=== PATIENT | female | born 1935 | race American Indian/Alaskan Native ===

== ENCOUNTER → 2017-08-02 | Outpatient (CLI) | payer OTHER ==
--- NOTE | 2017-08-02 15:37 | MAMMOGRAPHY REPORT ---
BILATERAL DIGITAL SCREENING MAMMOGRAM WITH CAD: 08/02/2017 CLINICAL HISTORY: Routine screening. The patient reported to the technologist that she has intermitt ent pain in her right lateral breast. TECHNIQUE: Current study was also evaluated with a Computer Aided Detection (CAD) system. Bilateral CC and MLO views were obtained. COMPARISON: Comparison is made to exams dated: 08/01/2016 mammogram, 07/29/2015 mammogram, [facility] [place], 04/22/2014 mammogram, 04/15/2013 mammogram, and 04/14/2012 mamm ogram - [facility]. BREAST COMPOSITION: There are scattered areas of fibroglandular density in both breasts. FINDINGS: No suspicious masses, calcifications, or areas of architectural distortion are noted in ei ther breast. There has been no significant interval change compared to prior exams. Benign oil cysts in the left breast are stable. A square marker was placed on the skin at the site of intermittent p ain described by the patient in the right superior breast seen on the MLO view only; no suspicious ma mmographic abnormality is seen in this region. IMPRESSION: ACR BI-RADS CATEGORY 2: BENIGN There is no mammographic evidence of malignancy. A 1 year screening mammogram is recommended. Also r ecommend clinical follow-up for intermittent right breast pain reported by the patient. The patient will receive written notification of the results. Approximately 10% of breast cancers are not detected with mammography. A negative mammographic report should not delay biopsy if a clinically suggestive mass is present. Elise Thao M.D. ah/:08/02/2017 10:45:47 Band Saw Operator: Jemima TORRE([place])(M), [facility] letter sent: Normal 1/2 BI-RADS Code: ACR BI-RADS Category 2: Benign
== END | disposition home or self-care (01) ==
LOC: C.MAMM 09:25
PROVIDERS: ATTEND Obstetrics & Gynecology
DX: Z12.31 Encounter for screening mammogram for malignant neoplasm of breast (principal)

== ENCOUNTER 2022-05-29 21:11 | Observation (INO) ==
--- NOTE | 2022-05-29 21:27 | Emergency Department Note ---
Impression & Plan Stroke-like symptom ADMIT ED Provider Note HPI: The patient is an 86-year-old female who presents the emergency department with an episode of transient altered speech and right-sided facial droop. This reportedly happened 3 hours prior to arrival. Patient symptoms are completely resolved on arrival here to the ED. patient is otherwise in no acute distress on arrival, she does have a history of some mild cognitive disorder and she is a limited historian on arrival but she is able to follow my commands appropriately and tells me that she does feel well. Patient is alert and oriented on arrival x3. ROS: -Neuro: Transient alteration in speech, right-sided facial droop *10 point review systems was conducted and is otherwise negative unless stated above *Outpatient medications and allergy history reviewed PE: General: Alert, NAD HEENT: Normocephalic, atraumatic Eyes: Extraocular eye movement is intact, no scleral erythema Pulmonary: Clear to auscultation bilaterally, no wheezing Cardio: Regular rate and rhythm GI: Abdomen is soft, nontender : No suprapubic tenderness MSK: No evidence of trauma or malformation of the extremities, no edema Skin: No evidence of rash Neuro: Alert, no focal deficits, symmetrical facial movements are appreciated, no ataxia on [id number] testing bilaterally, patient does not have any drift of the upper extremities or lower extremities with testing against gravity Psychiatric: Cooperative media monitor: - An order was placed for continuous cardiac monitoring - Patient was noted to be in sinus rhythm with a rate of 85 EKG: Rate: 76 Rhythm: Normal sinus rhythm Intervals: Within normal limits ST changes: No ST elevation Time: 2228 CTA NECK: Mild atherosclerosis of the aortic arch. Moderate atherosclerosis of the right carotid bulb with short segment 50% narrowing. The post stenotic segment is well opacified. Mild atherosclerosis of the left carotids. The vertebral arteries are intact. Emphysematous changes of the upper lung escobedo. Soft tissue structures are intact. DJD. Impression: No acute findings. Radiologist: Lew Coronel M.D. CTA HEAD: Mild atherosclerosis of the cavernous carotids. MCAs and ACAs are intact. Vertebrals, basilar and the hand drawer in helper are intact. 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 Impression: No acute findings. Radiologist: Lew Coronel M.D. CT HEAD: Moderate brain volume loss. Mild chronic ischemic change. Sinuses clear. Postsurgical changes of the left mastoid. Cochlear implant creates streak artifact limiting evaluation. Impression: No acute findings. Limited by artifact. Radiologist: Lew Coronel M.D. NIH STROKE SCALE: 1A: Level of consciousness Alert; keenly responsive 0 1B: Ask month and age Both questions right 0 1C: 'Blink eyes' & 'squeeze hands' Performs both tasks 0 2: Horizontal extraocular movements Normal 0 3: Visual escobedo No visual loss 0 4: Facial palsy Normal symmetry 0 5A: Left arm motor drift No drift for 10 seconds 0 5B: Right arm motor drift No drift for 10 seconds 0 6A: Left leg motor drift No drift for 5 seconds 0 6B: Right leg motor drift No drift for 5 seconds 0 7: Limb Ataxia No ataxia 0 8: Sensation Normal; no sensory loss 0 9: Language/aphasia Normal; no aphasia 0 10: Dysarthria Normal 0 11: Extinction/inattention No abnormality 0 TOTAL NIH SCORE = 0 Medical Decision Making: The patient is a 86-year-old female who presents the emergency department after a transient episode of strokelike symptoms. Patient's later arrived at the bedside to provide further history, he states that the patient did have an acute episode at the dinner table shortly prior to arrival here to the ED where she had an episode of word finding difficulty, this lasted approximately 10 to 15 minutes, per EMS report patient was also noted to have some right-sided facial droop on their arrival. By the time the patient arrived here to the ED her symptoms had seemed to resolve therefore stroke alert was not activated. She is not considered a candidate for any acute aggressive therapy such as tPA or thrombectomy given lack of any symptoms. CT and CT angiography of the head and neck were obtained and did not show any evidence of acute stroke. Patient's lab work otherwise shows evidence of hyponatremia 128 that does appear to be new, in addition troponin is elevated at 26, I discussed the above findings with the patient and her at the bedside, patient does remain well-appearing on my reassessment, discussed that given her troponin elevation with history of CAD and this acute episode this evening we should obtain delta troponin as the patient did initially expressed interest in discharge as did her . Delta troponin was obtained and is elevated at 31.7. Discussed all the above with the patient and her , at this time given hyponatremia in addition to change in delta troponin I do feel that admission is the best course of action for the patient for close observation and reevaluation in the morning by the hospitalist service. Patient and her expressed an agreement understanding, patient will be admitted for secondary stroke work-up in addition to elevated troponin hyponatremia, she may not be able to obtain MRI imaging of the brain secondary to cochlear implant. Patient was given aspirin in the ED, will hold on IV fluids given hyponatremia. Case was discussed with the on-call hospitalist, Dr. Juares, and the patient was admitted in stable condition for further care. Diagnosis: 1. TIA symptoms/expressive aphasia 2. Elevated high-sensitivity troponin level 3. Hyponatremia, acute Disposition: ADMIT David Ferrell DO Emergency Medicine Past Med/Surg History Medical History Bilateral sensorineural hearing loss CAD (coronary artery disease) Encounter for pessary maintenance GERD (gastroesophageal reflux disease) Hip bursitis, left History of basal cell carcinoma History of migraine headaches Hyperlipidemia Hypertension Mild cognitive disorder Sensorineural hearing loss (SNHL) of left ear with restricted hearing of right ear Surgical History History of appendectomy History of colonoscopy History of ear surgery History of hand surgery History of left hip replacement History of right cataract surgery History of surgery History of tubal ligation S/P hip replacement Family History Father Coronary heart disease Sister Breast cancer Grandmother (Maternal) Breast cancer Denies family history of Ovarian cancer Prostate cancer Diabetes Myocardial infarction Lung cancer Colorectal cancer Social History Smoking Status: Never smoker Tobacco Type: Cigarettes Age Quit Using Tobacco: 42; packs per day: 0.5; Second Hand Exposure: No; Hx Alcohol Use: No Hx Substance Use: No Preferred Language: Bengali Communication Ability: Effective Visual Impairment: Limited Hearing Ability: Cochlear Implant Online Advertising Manager Required: No Beliefs That Will Affect Care: None marital status: Current Living Situation: Spouse current occupational status: retired How many Children do You have: 0 Feels Safe at Home: Yes Childhood Exposure to Second-Hand Smoke: No caffeine: Yes (drinks coffee ) Dental Care, Regularly: Yes Physical Activity Frequency: Does not Exercise Seatbelt Use: always Sunscreen Use: Yes Assistive Devices: Glasses and Hearing Aid - Right Allergies Allergies Allergy/AdvReac Type Severity Reaction Status Date / Time Sulfa (Sulfonamide Allergy Mild Nausea Verified 04/27/22 09:07 Antibiotics) Home Meds Home Medications Medication Instructions Recorded Confirmed aspirin 81 mg tablet 81 mg PO HS 02/23/19 04/27/22 azelastine 137 mcg (0.1 %) nasal 1 spray intranasal UD PRN Nasal 07/15/20 04/27/22 spray aerosol Congestion triamcinolone acetonide 0.1 % 1 applic topical UD PRN Skin 07/15/20 04/27/22 topical cream Irritation doxazosin 2 mg tablet 2 mg PO DAILY 04/27/22 04/27/22 losartan 50 mg tablet 100 mg PO QAM PRN daily 04/27/22 04/27/22 Previous Rx's Medication Instructions Recorded calcium carbonate 600 mg-vitamin 1 tab PO DAILY #30 tabs 03/20/22 D3 10 mcg (400 unit) tablet (Calcium with Vitamin D) pantoprazole 40 mg tablet,delayed 40 mg PO DAILY #90 tabs 03/27/22 release atorvastatin 40 mg tablet 40 mg PO DAILY #90 tabs 04/05/22 clopidogrel 75 mg tablet (Plavix) 75 mg PO DAILY #30 tabs 04/05/22 metoprolol tartrate 50 mg tablet 50 mg PO BID #180 tabs 04/05/22 Results & Data (ED) Vital Signs Vital Signs - 24 hr 05/29/22 21:24 05/29/22 22:09 Temperature 36.5 C Temperature Source Oral Pulse Rate 81 Respiratory Rate 17 Respiratory Depth Normal Pulse Oximetry 98 Oxygen Delivery Method Room Air Room Air Sepsis Recent Fever Within 48 Hours No Sepsis New/Unexplained Change in Mental Status Yes Sepsis Action Taken by Nursing No Action Required Laboratory Data Result diagrams: 05/29/22 21:31 05/29/22 21:31 Lab Results 05/29/22 05/29/22 05/29/22 Range/Units 21:31 21:31 21:31 WBC 7.52 (4.8-10.8) K/ul RBC 4.29 (3.93-5.22) M/uL Hgb 12.3 (12.0-16.0) g/dl Hct 37.2 (34.1-44.9) % MCV 86.7 (80.0-100.0) fL MCH 28.7 (25.0-34.0) pg MCHC 33.1 (32.0-36.0) g/dL RDW Std Deviation 41.0 (36.4-46.3) fL RDW Coeff of Dre 13.0 (11.5-14.5) % Plt Count 225 (130-400) K/uL MPV 9.4 (9.4-12.3) fL Immature Gran % (Auto) 0.4 % Neut % (Auto) 74.9 % Lymph % (Auto) 13.0 % Allen % (Auto) 8.4 % Eos % (Auto) 2.8 % Baso % (Auto) 0.5 % Neut # (Auto) 5.63 (1.4-6.5) K/uL Lymph # (Auto) 0.98 L (1.2-3.4) K/uL Allen # (Auto) 0.63 (0.24-0.82) K/uL Eos # (Auto) 0.21 (0-0.50) K/uL Baso # (Auto) 0.04 (0-0.2) K/uL Immature Gran # (Auto) 0.03 H (0.00-0.02) K/uL PT 10.6 (9.0-12.0) Seconds INR 1.0 (0.9-1.1) APTT 29.3 (21.0-31.0) Seconds PTT Ratio 1.1 Sodium (136-145) mmol/L Potassium (3.5-5.1) mmol/L Chloride (98-107) mmol/L Carbon Dioxide (21-32) mmol/L Anion Gap (3-11) BUN (6-23) mg/dl Creatinine (0.6-1.2) mg/dl Est Cr Clr Drug Dosing ml/min Est GFR ( Amer) ml/min Est GFR (Non-Af Amer) ml/min BUN/Creatinine Ratio (10-20) Glucose (70-99(Fasting)) mg/dl POC Glucose (70-99) mg/dl Calcium (8.5-10.1) mg/dl Magnesium (1.7-2.4) mg/dl Total Bilirubin (0.2-1.0) mg/dl AST (13-39) U/L ALT (7-52) U/L Alkaline Phosphatase (34-104) U/L Troponin I High Sens (0-14) pg/ml Total Protein (6.0-8.3) gm/dl Albumin (3.4-5.0) gm/dl Globulin (2.5-4.0) gm/dl Albumin/Globulin Ratio (0.9-2) Blood Type O Positive Antibody Screen NEGATIVE 05/29/22 05/29/22 05/29/22 Range/Units 21:31 21:32 23:55 WBC (4.8-10.8) K/ul RBC (3.93-5.22) M/uL Hgb (12.0-16.0) g/dl Hct (34.1-44.9) % MCV (80.0-100.0) fL MCH (25.0-34.0) pg MCHC (32.0-36.0) g/dL RDW Std Deviation (36.4-46.3) fL RDW Coeff of Dre (11.5-14.5) % Plt Count (130-400) K/uL MPV (9.4-12.3) fL Immature Gran % (Auto) % Neut % (Auto) % Lymph % (Auto) % Allen % (Auto) % Eos % (Auto) % Baso % (Auto) % Neut # (Auto) (1.4-6.5) K/uL Lymph # (Auto) (1.2-3.4) K/uL Allen # (Auto) (0.24-0.82) K/uL Eos # (Auto) (0-0.50) K/uL Baso # (Auto) (0-0.2) K/uL Immature Gran # (Auto) (0.00-0.02) K/uL PT (9.0-12.0) Seconds INR (0.9-1.1) APTT (21.0-31.0) Seconds PTT Ratio Sodium 128 L (136-145) mmol/L Potassium 3.7 (3.5-5.1) mmol/L Chloride 91 L (98-107) mmol/L Carbon Dioxide 30 (21-32) mmol/L Anion Gap 7 (3-11) BUN 18 (6-23) mg/dl Creatinine 1.02 (0.6-1.2) mg/dl Est Cr Clr Drug Dosing 44.1 ml/min Est GFR ( Amer) 58.5 ml/min Est GFR (Non-Af Amer) 50.5 ml/min BUN/Creatinine Ratio 17.6 (10-20) Glucose 129 H (70-99(Fasting)) mg/dl POC Glucose 146 H (70-99) mg/dl Calcium 9.0 (8.5-10.1) mg/dl Magnesium 2.1 (1.7-2.4) mg/dl Total Bilirubin 0.5 (0.2-1.0) mg/dl AST 13 (13-39) U/L ALT 11 (7-52) U/L Alkaline Phosphatase 70 (34-104) U/L Troponin I High Sens 26.5 H 31.7 H (0-14) pg/ml Total Protein 6.4 (6.0-8.3) gm/dl Albumin 3.9 (3.4-5.0) gm/dl Globulin 2.5 (2.5-4.0) gm/dl Albumin/Globulin Ratio 1.6 (0.9-2) Blood Type Antibody Screen Administered Medications Discontinued Medications Aspirin (Aspirin Chew 324 Mg) 324 mg PO NOW STA Stop: 05/29/22 23:27 Last Admin: 05/29/22 23:41 Dose: 324 mg Documented By: MORE Ioversol (Optiray 300 500ml) 105 ml IV ONCE ONE Stop: 05/29/22 21:55 Last Admin: 05/29/22 21:54 Dose: 105 ml Documented By: JAXSON Discharge Plan Visit Data Chief Complaint: Stroke/CVA Symptoms ED Provider: David Ferrell Discharge Problem: Stroke-like symptom Forms Stand Alone Forms: My [facility] Prescriptions Prescriptions: No Action calcium carbonate-vitamin D3 [Calcium with Vitamin D] 600 mg-10 mcg (400 unit) tablet 1 tab PO DAILY Qty: 30 5RF pantoprazole 40 mg tablet,delayed release (DR/EC) 40 mg PO DAILY Qty: 90 3RF atorvastatin 40 mg tablet 40 mg PO DAILY Qty: 90 3RF clopidogrel [Plavix] 75 mg tablet 75 mg PO DAILY Qty: 30 5RF metoprolol tartrate 50 mg tablet 50 mg PO BID Qty: 180 3RF losartan 50 mg tablet 100 mg PO QAM PRN (Reason: daily) doxazosin 2 mg tablet 2 mg PO DAILY aspirin 81 mg tablet 81 mg PO HS triamcinolone acetonide 0.1 % Cream 1 applic TOPICAL UD PRN (Reason: Skin Irritation) azelastine 137 mcg (0.1 %) Aerosol,[place] 1 spray INTRANASAL UD PRN (Reason: Nasal Congestion) Referrals Referrals: Umang Das DO [Primary Care Provider] -
[2022-05-29] MEDS ORDERED: OPTIRAY 300 500mL IV ONE (21:54)
[2022-05-29 21:59] LABS: Basophils # (auto) 0.04 K/uL (0-0.2); Basophils % (auto) 0.5 %; Eosinophils # (auto) 0.21 K/uL (0-0.50); Eosinophils % (auto) 2.8 %; Hematocrit (blood only) 37.2 % (34.1-44.9); Hemoglobin 12.3 g/dl (12.0-16.0); Immature Granulocytes # (auto) 0.03 K/uL (0.00-0.02); Immature Granulocytes % (auto) 0.4 %; Lymphocytes # (auto) 0.98 K/uL (1.2-3.4); Mean Corpuscular Hemoglobin 28.7 pg (25.0-34.0); Mean Corpuscular Hgb Conc 33.1 g/dL (32.0-36.0); Mean Corpuscular Volume 86.7 fL (80.0-100.0); Mean Platelet Volume 9.4 fL (9.4-12.3); Monocytes # (auto) 0.63 K/uL (0.24-0.82); Monocytes % (auto) 8.4 %; Neutrophils # (auto) 5.63 K/uL (1.4-6.5); Neutrophils % (auto) 74.9 %; Platelet Count 225 K/uL (130-400); Red Blood Count 4.29 M/uL (3.93-5.22); White Blood Count 7.52 K/ul (4.8-10.8)
[2022-05-29 22:07] LABS: Partial Thromboplastin Ratio 1.1; Partial Thromboplastin Time 29.3 Seconds (21.0-31.0); Prothrombin Time 10.6 Seconds (9.0-12.0)
[2022-05-29 22:13] LABS: Albumin Globulin Ratio 1.6 (0.9-2); Albumin Level 3.9 gm/dl (3.4-5.0); BUN Creatinine Ratio 17.6 (10-20); Bilirubin,Total 0.5 mg/dl (0.2-1.0); Creatinine Clr Calc Pharmacy 44.1 ml/min; Est GFR (African American) 58.5 ml/min; Est GFR (Non-African American) 50.5 ml/min; Globulin 2.5 gm/dl (2.5-4.0); Magnesium 2.1 mg/dl (1.7-2.4); Potassium 3.7 mmol/L (3.5-5.1); Total Protein 6.4 gm/dl (6.0-8.3)
[2022-05-29 22:15] LABS: Troponin I High Sensitivity 26.5 pg/ml (0-14)
[2022-05-29] MEDS ORDERED: ASPIRIN CHEW 324 MG PO STA (23:26)
--- NOTE | 2022-05-30 01:06 | History & Physical Report ---
Date of Service May 30, 2022 Assessment & Plan (1) Stroke-like symptom: Plan: Carine Luna is an 86-year-old female with past medical history of CAD, HLD, HTN, mild cognitive disorder, sensorineural hearing loss with cochlear implant who presented today due to difficulty speaking. Stroke-like symptoms - Difficulty speaking and right-sided facial droop at home - Resolved prior to ED arrival w/o recurrence since being in hospital - CT head & CTA head/neck w/o acute findings - Ideally would obtain MRI brain but patient has cochlear implant due to SNHL, which is incompatible - Regardless patient is already on ASA & Plavix due to STEMI s/p ROSEANNA to RCA in February 2022 - She is also on a high-intensity statin - Will obtain AM lipids & A1C - Ordered Echo w/ bubble study - Can consider Neuro consult if any recurrence of symptoms - [facility] Hyponatremia - New finding of unclear etiology - Will add on urine & serum osms, as well as urine sodium - Hold on fluids at this time - No medications that would be obvious causes for hyponatremia or SIADH Elevated troponin - Mild trop elevation initially at 26.5, then to 31.7 - Likely demand in the setting of stress - EKG showing ischemic changes but she has a recent h/o STEMI - No current cardiac symptoms - Will continue to trend trop CAD/HTN/HLD - Continue home ASA, atorvastatin, clopidogrel, doxazosin, furosemide, losartan, MTP tartrate GERD - Continue pantoprazole, simethicone prn Allergic rhinitis - Continue fluticasone nasal spray prn DVT ppx: SCDs Diet: [facility] Full (2) CAD (coronary artery disease): (3) Mild cognitive disorder: (4) Hypertension: (5) Hyperlipidemia: (6) Chronic rhinitis: (7) Sensorineural hearing loss (SNHL) of left ear with restricted hearing of right ear: (8) GERD (gastroesophageal reflux disease): History of Present Illness Primary Care Provider: Umang Das DO Carine Luna is an 86-year-old female with past medical history of CAD, HLD, HTN, mild cognitive disorder, sensorineural hearing loss with cochlear implant who presented today due to difficulty speaking. She and her report that they were having dinner at home and conversing as usual when the patient suddenly developed difficulty producing words. At this point, realized that this was a symptom of stroke and called EMS. They state this symptom lasted about 15 minutes. At the time of EMS arrival the patient apparently had right facial droop as well. By the time the patient arrived in the ED symptoms had completely resolved. She has since been able to talk normally and has not had any focal neurologic deficits. She denies headache, dizziness, vision changes, nausea, vomiting, chest pain, palpitations, shortness of breath, weakness, numbness, tingling. In the ED patient had work-up with CT head, CTA head/neck all of which were negative for any acute findings. Lab work significant for a mildly increased high-sensitivity troponin to 26.5 and then 31.7. Also had hyponatremia to 128. She was given aspirin 324mg x1. Allergies Allergy/AdvReac Type Severity Reaction Status Date / Time Sulfa (Sulfonamide Allergy Mild Nausea Verified 05/30/22 02:02 Antibiotics) Home Medications Medication Instructions Recorded Confirmed Type triamcinolone acetonide 0.1 % 1 applic topical UD PRN Skin 07/15/20 05/30/22 History topical cream Irritation pantoprazole 40 mg tablet,delayed 40 mg PO DAILY #90 tabs 03/27/22 05/30/22 Rx release atorvastatin 40 mg tablet 40 mg PO DAILY #90 tabs 04/05/22 05/30/22 Rx clopidogrel 75 mg tablet (Plavix) 75 mg PO DAILY #30 tabs 04/05/22 05/30/22 Rx metoprolol tartrate 50 mg tablet 50 mg PO BID #180 tabs 04/05/22 05/30/22 Rx doxazosin 2 mg tablet 2 mg PO DAILY 04/27/22 05/30/22 History acetaminophen 650 mg 650 mg PO TID PRN Pain 05/30/22 05/30/22 History tablet,extended release (Tylenol Arthritis Pain) aspirin 81 mg tablet,delayed 81 mg PO DAILY 05/30/22 05/30/22 History release calcium carbonate 600 mg-vitamin 1 tab PO QPM 05/30/22 05/30/22 History D3 10 mcg (400 unit) tablet (Calcium with Vitamin D) fluticasone propionate 50 1 spray intranasal BID PRN Nasal 05/30/22 05/30/22 History mcg/actuation nasal Congestion spray,suspension furosemide 40 mg tablet 40 mg PO DAILY 05/30/22 05/30/22 History losartan 100 mg tablet 100 mg PO DAILY 05/30/22 05/30/22 History simethicone 125 mg capsule 125 mg PO Q6 PRN Indigestion 05/30/22 05/30/22 History Past Med/Surg History Medical History (Updated 05/30/22 @ 03:05 by Sedrick Zarate MD) Bilateral sensorineural hearing loss CAD (coronary artery disease) Encounter for pessary maintenance Followed by [facility] GERD (gastroesophageal reflux disease) DENIES Hip bursitis, left History of basal cell carcinoma History of migraine headaches Hyperlipidemia Hypertension Mild cognitive disorder UNSURE /COMMUNICATION EFFECTIVE FOR PHONE INTERVIEW Sensorineural hearing loss (SNHL) of left ear with restricted hearing of right ear Left CI and Severe to profound loss in right ear Surgical History History of appendectomy History of colonoscopy History of ear surgery CHOCHLEAR IMPLANT MAGNET LEFT SIDE History of hand surgery R&L History of left hip replacement History of right cataract surgery History of surgery History of Foot Arthroereisis Subtalar Joint Left History of Foot Arthroereisis Subtalar Joint Right History of tubal ligation S/P hip replacement HX left Family History Father Coronary heart disease Sister Breast cancer Grandmother (Maternal) Breast cancer Denies family history of Ovarian cancer Prostate cancer Diabetes Myocardial infarction Lung cancer Colorectal cancer Social History Smoking Status: Never smoker Tobacco Type: Cigarettes Age Quit Using Tobacco: 42; packs per day: 0.5; Second Hand Exposure: No; Hx Alcohol Use: No Hx Substance Use: No Preferred Language: Polish Communication Ability: Effective Visual Impairment: Limited Hearing Ability: Cochlear Implant 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 NAD. HEENT: PERRL, EOMI. Moist mucous membranes. NECK: No JVD. No lymphadenopathy. CHEST/LUNGS: CTAB A/P. No crackles, wheezes, rales, rhonchi. HEART: RRR. No m/g/r. ABDOMEN: NT/ND, soft. BS+ x4 EXTREMITIES: No cyanosis, no clubbing, no edema SKIN: Warm and dry. No rashes or lesions. PSYCHIATRIC: Euthymic affect, no SI, no pressured speech, no hallucinations NEUROLOGIC:No FND. CN II-XII grossly intact. Results & Data Results & Data ([facility]) Vital Signs (Past 12 Hours) Vital Signs Temp Pulse Resp Pulse Ox O2 Del Method 05/29/22 22:09 Room Air 05/29/22 21:24 36.5 C 81 17 98 Room Air Supervising Physician Co-Signing Physician Notes Patient seen and examined, chart reviewed, case discussed with Dr. Strong and I agree with the assessment and plan as above Resident Activity Tracking Resident Involvement: Resident Care Provided Care Provided: Adult Hospital Medicine
[2022-05-30] MEDS ORDERED: SIMETHICONE 80 MG CHEW PO PRN (03:07)
--- NOTE | 2022-05-30 04:20 | Billing Data ---
Date of Service May 30, 2022 Coding Level of Care Code INT OBSERVATION CARE 50M LVL 2
[2022-05-30] MEDS ORDERED: FLUTICASONE PROPIONATE NA SPR 16 GM BTL PRN (05:22)
[2022-05-30] MEDS ORDERED: ACETAMINOPHEN 325 MG TAB PO PRN (05:22)
[2022-05-30] MEDS ORDERED: POLYETHYLENE (MIRALAX) 17 GM PACK PO PRN (05:22)
[2022-05-30] MEDS ORDERED: TRIAMCINOLONE ACET 0.1% CR 15 GM TUBE TOP PRN (05:22)
[2022-05-30] MEDS ORDERED: ALUMINUM/MAGNESIUM SUSP 30 ML UDC PO PRN (05:22)
[2022-05-30] MEDS ORDERED: ONDANSETRON INJ 2 MG/ML 2 ML VIAL IV PRN (05:22)
--- NOTE | 2022-05-30 08:18 | CT Scan Report ---
HEAD & NECK CTA HISTORY: Slurred speech. Right-sided facial droop. Stroke Like Symptoms TECHNIQUE: Multiaxial CT images of the head were performed following the intravenous administration o f contrast to evaluate the major cerebral vessels. Multiaxial CT images of the neck were also perform ed following the intravenous administration of contrast to evaluate the major cervical vessels. Maxim um intensity projection images were also obtained. A dose lowering technique was utilized adhering to the principles of ALARA. COMPARISON: Head CT 05/29/2022 FINDINGS: There is no mass, hematoma, midline shift, or acute infarct. Visualized intracranial internal carotid arteries, distal vertebral arteries, and basilar artery are widely patent. There is no significant s tenosis, occlusion, or aneurysm seen within the bilateral ACAs, MCAs, or psychiatric security nurse. There is a persistent left posterior circulation. This is considered to be a normal variant. The major dural venous s inuses are patent. Mild calcified plaque within the bilateral carotid siphons. The aortic arch and proximal great vessels are widely patent. There is no significant stenosis, occ lusion, or dissection identified within the bilateral common carotid, internal carotid, or vertebral arteries. Emphysema. Mild to moderate calcified plaque within the bilateral carotid bifurcations. Sli ghtly hypoplastic right vertebral artery. Degenerative changes within the cervical spine. IMPRESSION: 1. No significant stenosis, occlusion, or aneurysm within the [place] of [place]. 2. No significant stenosis, occlusion, or dissection identified within the carotid or vertebral arter ies. ACT 112: Negative or not required by law. Electronically signed by: Yaw Carr M.D. 05/30/2022 8:17 AM
--- NOTE | 2022-05-30 08:19 | CT Scan Report ---
HEAD & NECK CTA HISTORY: Slurred speech. Right-sided facial droop. Stroke Like Symptoms TECHNIQUE: Multiaxial CT images of the head were performed following the intravenous administration o f contrast to evaluate the major cerebral vessels. Multiaxial CT images of the neck were also perform ed following the intravenous administration of contrast to evaluate the major cervical vessels. Maxim um intensity projection images were also obtained. A dose lowering technique was utilized adhering to the principles of ALARA. COMPARISON: Head CT 05/29/2022 FINDINGS: There is no mass, hematoma, midline shift, or acute infarct. Visualized intracranial internal carotid arteries, distal vertebral arteries, and basilar artery are widely patent. 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 There is a persistent left posterior circulation. This is considered to be a normal variant. The major dural venous s inuses are patent. Mild calcified plaque within the bilateral carotid siphons. The aortic arch and proximal great vessels are widely patent. There is no significant stenosis, occ lusion, or dissection identified within the bilateral common carotid, internal carotid, or vertebral arteries. Emphysema. Mild to moderate calcified plaque within the bilateral carotid bifurcations. Sli ghtly hypoplastic right vertebral artery. Degenerative changes within the cervical spine. IMPRESSION: 1. No significant stenosis, occlusion, or aneurysm within the [place] of [place]. 2. No significant stenosis, occlusion, or dissection identified within the carotid or vertebral arter ies. ACT 112: Negative or not required by law. Electronically signed by: Yaw Carr M.D. 05/30/2022 8:17 AM
[2022-05-30 08:43] LABS: BUN Creatinine Ratio 15.5 (10-20); Chol HDL Ratio 4.4 (0-5); Creatinine Clr Calc Pharmacy 46.6 ml/min; Est GFR (African American) 62.2 ml/min; Est GFR (Non-African American) 53.6 ml/min; Potassium 3.5 mmol/L (3.5-5.1)
[2022-05-30] MEDS ORDERED: METOPROLOL TARTRATE 50 MG TAB PO SCH (09:00)
[2022-05-30] MEDS ORDERED: LOSARTAN POTASSIUM 50 MG TAB PO SCH (09:00)
[2022-05-30] MEDS ORDERED: PANTOprazole 40 MG TAB PO SCH (09:00)
[2022-05-30] MEDS ORDERED: ASPIRIN 81 MG ECTAB PO SCH (09:00)
[2022-05-30] MEDS ORDERED: CLOPIDOGREL BISULFATE 75 MG TAB PO SCH (09:00)
[2022-05-30] MEDS ORDERED: ATORVASTATIN 40 MG TAB PO SCH (09:00)
[2022-05-30] MEDS ORDERED: FUROSEMIDE 40 MG TAB PO SCH (09:00)
[2022-05-30] MEDS ORDERED: DOXAZosin MESYLATE TAB 2 MG TAB PO SCH (09:00)
--- NOTE | 2022-05-30 09:35 | CT Scan Report ---
CT OF THE HEAD WITHOUT CONTRAST CLINICAL HISTORY: Stroke Like Symptoms. Slurred speech. Right-sided facial droop. COMPARISON STUDY: No previous studies for comparison. TECHNIQUE: Helical axial images of the head were obtained without IV contrast. Automated exposure con trol was utilized for the study. A dose lowering technique was utilized adhering to the principles o f ALARA. FINDINGS: This exam is compromised by streak artifact from a left-sided cochlear implant. No acute in tracranial hemorrhage, midline shift or mass effect is present. Ventricular system is normal. Basal c isterns are patent. There are no extra axial collections. There is mild atrophy. White matter hypoden sity suggests small vessel disease. No findings to suggest acute dural sinus thrombosis or acute terr itorial infarct. There are no significant calvarial abnormalities. IMPRESSION: No acute intracranial findings. Exam mildly compromised by streak artifact from the left cochlear implant. ACT 112: Negative or not required by law. Electronically signed by: Murtaza Barrera M.D. 05/30/2022 9:32 AM
--- NOTE | 2022-05-30 10:35 | XCELERA ---
[id number]
--- NOTE | 2022-05-30 12:32 | Neurology Consultation ---
Date of Consultation May 30, 2022 Assessment & Plan (1) TIA (transient ischemic attack): Plan 86-year-old male presenting with a 15-minute episode of word finding difficulty and associated right facial droop. Symptoms have resolved and not recurred. No prior history of stroke or TIA. History notable for hypertension, hyperlipidemia, coronary artery disease, on dual antiplatelet therapy, atorvastatin, and antihypertensives as an outpatient. No significant vascular lesion identified on CT angiography of the head and neck. Patient's neurologic symptoms were localized to the left cerebral hemisphere. Underlying pathology such as cardioembolism or small vessel thrombosis cannot be determined with any degree of certainty. Carotid embolism probably excluded given fairly unremarkable CT angiography results. Would recommend 14-day mobile cardiac outpatient telemetry. Unable to have MRI due to cochlear implant. Continue with aspirin 81 mg/day, clopidogrel 75 mg/day, atorvastatin 40 mg/day as well as antihypertensive medication regimen. No further immediate neurologic recommendations. Patient may follow-up with his PCP for ongoing evaluation and management. Would not require additional outpatient neurological assessment at this time. History of Present Illness Reason for Consultation: TIA Requesting Physician: Clary Ibrahim MD Attending Physician: Clary Ibrahim MD History of Present Illness The patient is an 86-year-old male who presented to the emergency department yesterday with a chief complaint of altered speech and associated right facial droop beginning about 3 hours prior to arrival. Patient recalls having diff iculty with word finding, but no difficulty comprehending what his spouse was saying. Symptoms resolved in about 15 minutes and have not recurred. History notable for coronary artery disease, hyperlipidemia, and hypertension. Patient also has a left cochlear implant which precludes him from MRI evaluation. He does take daily low-dose aspirin, clopidogrel, and atorvastatin 40 mg/day as an outpatient. A CT of the head was negative for hemorrhage or acute process although the cochlear implant does compromise the examination due to excessive streak artifact over the left cerebral hemisphere. There is mild atrophy and chronic microvascular ischemic disease. CT angiography of the head and neck are unremarkable. I reviewed the images as well as the radiologist interpretation of these tests and agree with the findings as observed by the interpreting radiologist. Again, the above symptoms have not recurred. Patient is without specific or focal neurological complaint this morning. Allergies Allergy/AdvReac Type Severity Reaction Status Date / Time Sulfa (Sulfonamide Allergy Mild Nausea Verified 05/30/22 02:02 Antibiotics) Home Medications Medication Instructions Recorded Confirmed Type triamcinolone acetonide 0.1 % 1 applic topical UD PRN Skin 07/15/20 05/30/22 History topical cream Irritation pantoprazole 40 mg tablet,delayed 40 mg PO DAILY #90 tabs 03/27/22 05/30/22 Rx release atorvastatin 40 mg tablet 40 mg PO DAILY #90 tabs 04/05/22 05/30/22 Rx clopidogrel 75 mg tablet (Plavix) 75 mg PO DAILY #30 tabs 04/05/22 05/30/22 Rx metoprolol tartrate 50 mg tablet 50 mg PO BID #180 tabs 04/05/22 05/30/22 Rx doxazosin 2 mg tablet 2 mg PO DAILY 04/27/22 05/30/22 History acetaminophen 650 mg 650 mg PO TID PRN Pain 05/30/22 05/30/22 History tablet,extended release (Tylenol Arthritis Pain) aspirin 81 mg tablet,delayed 81 mg PO DAILY 05/30/22 05/30/22 History release calcium carbonate 600 mg-vitamin 1 tab PO QPM 05/30/22 05/30/22 History D3 10 mcg (400 unit) tablet (Calcium with Vitamin D) fluticasone propionate 50 1 spray intranasal BID PRN Nasal 05/30/22 05/30/22 History mcg/actuation nasal Congestion spray,suspension furosemide 40 mg tablet 40 mg PO DAILY 05/30/22 05/30/22 History losartan 100 mg tablet 100 mg PO DAILY 05/30/22 05/30/22 History simethicone 125 mg capsule 125 mg PO Q6 PRN Indigestion 05/30/22 05/30/22 History Patient History Medical History Bilateral sensorineural hearing loss CAD (coronary artery disease) Encounter for pessary maintenance Followed by [employer] GERD (gastroesophageal reflux disease) DENIES Hip bursitis, left History of basal cell carcinoma History of migraine headaches Hyperlipidemia Hypertension Mild cognitive disorder UNSURE /COMMUNICATION EFFECTIVE FOR PHONE INTERVIEW Sensorineural hearing loss (SNHL) of left ear with restricted hearing of right ear Left CI and Severe to profound loss in right ear Surgical History History of appendectomy History of colonoscopy History of ear surgery CHOCHLEAR IMPLANT MAGNET LEFT SIDE History of hand surgery R&L History of left hip replacement History of right cataract surgery History of surgery History of Foot Arthroereisis Subtalar Joint Left History of Foot Arthroereisis Subtalar Joint Right History of tubal ligation S/P hip replacement HX left Family History Father , age 61 Coronary heart disease Sister Breast cancer Grandmother (Maternal) Breast cancer Denies family history of Ovarian cancer Prostate cancer Diabetes Myocardial infarction Lung cancer Colorectal cancer Social History Smoking Status: Former smoker Tobacco Type: Cigarettes Age Quit Using Tobacco: 42; packs per day: 0.5; Second Hand Exposure: No; Hx Alcohol Use: Yes Alcohol type: wine Hx Substance Use: No Preferred Language: Yi Communication Ability: Effective Visual Impairment: Limited Hearing Ability: Cochlear Implant Infant And Toddler Teacher Required: No Beliefs That Will Affect Care: None marital status: Current Living Situation: Spouse current occupational status: retired How many Children do You have: 0 Feels Safe at Home: Yes Childhood Exposure to Second-Hand Smoke: No caffeine: Yes (drinks coffee ) Dental Care, Regularly: Yes Physical Activity Frequency: Does not Exercise Seatbelt Use: always Sunscreen Use: Yes Assistive Devices: Cane and Walker Review of Systems Constitutional: no fever and no chills Eyes: no blind spots and no diplopia Ear, Nose, Mouth, Throat: as per Subjective / HPI and + hearing loss Respiratory: no cough and no dyspnea Cardiovascular: no chest pain and no palpitations Gastrointestinal: no nausea and no vomiting Genitourinary: no urinary incontinence Musculoskeletal: no back pain, no neck pain and no myalgia Integumentary: no rash and no lesions Neurologic: as per Subjective / HPI Psychiatric: no depression and no anxiety Hematologic / Lymphatic: no easy bleeding and no easy bruising Exam (Neuro) Constitutional: well developed and well nourished; no acute distress Eyes: normal visual [place] by confrontation, PERRL, normal accommodation and EOM intact bilaterally; no fundoscopic abnormality, no nystagmus and no papilledema Cardiovascular: Vessels: normal carotid upstroke; no carotid bruit Neurologic: Oriented to:: Person, Place and Time Memory: Short Term Intact and Remote Intact Attention: Span Intact and Concentration Intact Language: Naming Objects and Repeating Phrases Speech Fluency: negative Dysarthria Speech Aphasia: negative Aphasia Fund of Knowledge: Current Events, Past History and Vocabulary Cranial Nerves: Normal II (Visual [place] full to confrontation, visual acuity normal), III, IV, (Pupils equal round reactive to light and accommodation, eye movements normal), V (Facial sensation intact), VII (There is no facial droop or weakness), IX, X (Palate elevates to midline), XI (Shoulder shrug intact) and XII (Tongue protrudes to midline); Abnorm VIII (Diminished hearing noted bilaterally) Motor Strength: Normal Lower Extremities and Normal Upper Extremities; negative Pronator Drift Motor Tone: Normal Lower Extremities and Normal Upper Extremities Muscle Bulk/Involuntary Movements: No Involuntary Movements; negative Muscle Atrophy Sensation: Light Touch Intact, Pain/Temperature Intact, Vibration Intact and Proprioception Intact Coordination: Normal; negative Limited Balance, Dysdiadochokinesia, Finger-Nose Abnormal or Heel-Mac Abnormal Deep Tendon Reflexes: Rt Triceps: 2+, Lt Triceps: 2+, Rt Biceps: 2+, Lt Biceps: 2+, Rt Brachioradialis: 2+, Lt Brachioradialis: 2+, Rt Patellar: 2+, Lt Patellar: 2+, Rt Ankle: 2+ and Lt Ankle: 2+ Special Tests: negative Babinski Present Gait: Normal Station and Gait Results & Data ([facility]) Vital Signs (Past 12 Hours) Vital Signs Temp Pulse Pulse Resp BP BP BP 05/30/22 11:22 36.6 C 72 18 130/80 05/30/22 08:07 36.5 C 92 H 20 153/115 H 163/123 H 05/30/22 05:25 36.4 C L 81 174/83 H 05/30/22 04:38 77 16 145/74 H 05/30/22 03:00 73 16 174/83 H 05/30/22 01:46 78 18 189/85 H Pulse Ox O2 Del Method 05/30/22 11:22 94 Room Air 05/30/22 08:07 98 Room Air 05/30/22 05:25 95 Room Air 05/30/22 04:38 95 Room Air 05/30/22 03:00 95 Room Air 05/30/22 01:46 95 Room Air Laboratory Results WBC 7.52, hemoglobin 12.3, hematocrit 37.2, MCV 86.7, platelet count 225, sodium 133, potassium 3.5, BUN 15, creatinine 0.97, glucose 98, calcium 9.0, triglycerides 265, cholesterol 128, LDL 46, VLDL 53, HDL 29, SARS-CoV-[address] testing negative Diagnostic Findings CT of the head including CT angiography of the head and neck are as described in history of present illness, I reviewed the images as well as the radiologist interpretation of these tests. An echocardiogram completed today revealed normal left ventricular systolic function, no significant valvular disease, left atrial size normal. Electrocardiogram revealed a normal sinus rhythm, 76 bpm. Coding Level of Care Code 17215 Initial Inpt Care Lvl 3 Diagnoses TIA (transient ischemic attack) G45.9
[2022-05-30] MEDS ORDERED: STROKE PATIENT DISCHARGE PRN (17:21)
--- NOTE | 2022-05-30 17:30 | Discharge Summary ---
Date of Service May 30, 2022 Admission HPI Per Admitting Provider Carine Luna is an 86-year-old female with past medical history of CAD, HLD, HTN, mild cognitive disorder, sensorineural hearing loss with cochlear implant who presented today due to difficulty speaking. She and her report that they were having dinner at home and conversing as usual when the patient suddenly developed difficulty producing words. At this point, realized that this was a symptom of stroke and called EMS. They state this symptom lasted about 15 minutes. At the time of EMS arrival the patient apparently had right facial droop as well. By the time the patient arrived in the ED symptoms had completely resolved. She has since been able to talk normally and has not had any focal neurologic deficits. She denies headache, dizziness, vision changes, nausea, vomiting, chest pain, palpitations, shortness of breath, weakness, numbness, tingling. In the ED patient had work-up with CT head, CTA head/neck all of which were negative for any acute findings. Lab work significant for a mildly increased high-sensitivity troponin to 26.5 and then 31.7. Also had hyponatremia to 128. She was given aspirin 324mg x1. Principal Diagnosis TIA Hyponatremia Discharge Exam Vitals reviewed Gen: [AAOx3, NAD] HEENT: [anicteric sclerae, EOMI] CV: [RRR no mgr nl S1S2] Pulm: [CTAB no wcr] Abd: [+BS soft NT ND no masses or hernias] Ext: [no edema] Skin: [no rashes, warm/dry] Neuro: [full strength throughout, CN 2-12 intact] Discharge Data Allergies Allergy/AdvReac Type Severity Reaction Status Date / Time Sulfa (Sulfonamide Allergy Mild Nausea Verified 05/30/22 02:02 Antibiotics) Consultations 05/30/22 08:04 Consult Neurology Routine Ordered Studies 05/29/22 21:24 CT angio head w con Urgent CT angio neck with con Urgent CT head/brain wo con Urgent Hospital Course (1) TIA (transient ischemic attack): Carine Luna is an 86-year-old female with past medical history of CAD, HLD, HTN, mild cognitive disorder, sensorineural hearing loss with cochlear implant who presented today due to difficulty speaking. With TIA - Difficulty speaking and right-sided facial droop at home - Resolved prior to ED arrival w/o recurrence since being in hospital, lasted 15 min - CT head & CTA head/neck w/o acute findings - Ideally would obtain MRI brain but patient has cochlear implant due to SNHL, which is incompatible - Regardless patient is already on ASA & Plavix due to STEMI s/p ROSEANNA to RCA in February 2022 - She is also on a high-intensity statin - lipids & A1C from 01/2022 acceptable - Ordered Echo w/ bubble study-negative - appreciate Neuro consult-event monitor to r/o occult Afib although seems more likely thrombotic cause -discussed BP control -no events on tele here stable for dc to home, 30 day cardiac event monitor ordered (2) Hyponatremia: - New finding, Na+ here 128 Improved to 133 after 1 L NS recently started on lasix 40mg daily after NV in 02/2022, suspect over diuresed Urine Osm and Na+ were never collected during this admission advised to cut lasix down to 20mg daily and watch for vol overload -f/u BMP in 1 week as outpt with PCP -does have pulm nodules but this does not seem consistent with SIADH (3) CAD (coronary artery disease): Elevated troponin on arrival midl and trended downward likely myocardial demand ischemia in setting of TIA ECG without acute ischemic changes No chest pains at all - Continue home ASA, atorvastatin, clopidogrel, doxazosin, losartan, metoprolol (4) Mild cognitive disorder: stable (5) Hypertension: continue home meds monitor BPs at home (6) Hyperlipidemia: continue atorvastatin (7) Chronic rhinitis: continue home meds (8) Sensorineural hearing loss (SNHL) of left ear with restricted hearing of right ear: (9) GERD (gastroesophageal reflux disease): continue home Protonix (10) Pulmonary nodules: pt and aware and will seek f/u with PULM Plan -SCDs for DVT proph Dispo-dc to home Total Time Total Time Spent Total Time Spent (In Minutes): 40 min Discharge Plan Discharge Items Patient Disposition: Home - Self-Care Reason For Visit: SPEECH DIFFICULTY Discharge Diagnosis: TIA Hyponatremia Activity: Resume your previous activity Non-emergency contact: Primary Care Provider Call non-emergency contact if: you have any medication questions and your symptoms worsen Follow-up/Referrals: Umang Das DO [Primary Care Provider] - 06/04/22 2:30 pm (Please arrive to your appointment by 2:15 on June 04. Thank you!) Diet: Heart Healthy [facility] Attending Provider Instructions: You were admitted for a workup for causes of Transient Ischemic Attack (TIA) which is like a "mini stroke" (a stroke that happens and then resolves on its own before any permanent damage to the brain occurs). This was most likely caused by a small blood clot in a small blood vessel in your brain. Fortunately, you are already on two blood thinners-aspirin and Plavix. Good blood pressure control helps prevent TIA and stroke as well. A heart monitor will be mailed to your house for you to wear to look for abnormal heart rhythms that can cause stroke. You also had a low sodium level which is likely from taking too high of a dose of lasix. Please cut your lasix back to 20mg daily and watch for weight gain, leg swelling, shortness of breath or fluid overload. Have your PCP check your sodium levels at your follow up visit. You were found to have nodules in your lungs on your CT scan of the chest at [facility]. Please follow up with a Comfort Filler in the near future for further evaluation of these. Risk Factors for Stroke: You can reduce your chances of stroke by working with your medical provider to adopt a healthy lifestyle. Some specific ways to lower your chance of stroke are: * If you are a smoker, now is the time to stop smoking cigarettes * If you are diabetic, improve the control of your blood sugars * Avoid excessive amounts of alcohol * Control high blood pressure * Lose weight if you are overweight * Be sure to lead an active lifestyle * Eat a healthy diet low in salt, cholesterol and fat You should know about other risk factors for stroke that you are unable to control. These include: * Age 55 years or older * Male gender * Certain racial groups: , or / * Family History of Stroke, Mini stroke or Heart Attack * Sickle Cell Disease Follow Up: It is important for you to keep your follow up appointments with your medical pr ovider. Who to Call and When: Medical Emergencies: Call 911 immediately if you experience any of the following warning signs and symptoms of Stroke: * Sudden numbness or weakness of the face, arm or leg, especially on one side of the body * Sudden confusion, trouble speaking or understanding * Sudden trouble seeing in one or both eyes * Sudden trouble walking, dizziness, loss of balance or coordination * Sudden severe headache with no cause Do not delay calling 911 if you experience any warning signs or symptoms of a stroke. Delay in seeking medical attention may affect what treatments can be given to you. . Pending Studies at Discharge: No Stand-Alone Forms: [facility], Smoking Cessation Medications and DC Order Prescriptions: Continued pantoprazole 40 mg tablet,delayed release (DR/EC) 40 mg PO DAILY Qty: 90 3RF atorvastatin 40 mg tablet 40 mg PO DAILY Qty: 90 3RF clopidogrel [Plavix] 75 mg tablet 75 mg PO DAILY Qty: 30 5RF metoprolol tartrate 50 mg tablet 50 mg PO BID Qty: 180 3RF doxazosin 2 mg tablet 2 mg PO DAILY triamcinolone acetonide 0.1 % Cream 1 applic TOPICAL UD PRN (Reason: Skin Irritation) simethicone 125 mg Capsule 125 mg PO Q6 PRN (Reason: Indigestion) acetaminophen [Tylenol Arthritis Pain] 650 mg Tablet Extended Release 650 mg PO TID PRN (Reason: Pain) losartan 100 mg tablet 100 mg PO DAILY fluticasone propionate 50 mcg/actuation spray,suspension 1 spray INTRANASAL BID PRN (Reason: Nasal Congestion) calcium carbonate-vitamin D3 [Calcium with Vitamin D] 600 mg-10 mcg (400 unit) tablet 1 tab PO QPM aspirin [Aspir-Low] 81 mg Tablet,Delayed Release (Dr/Ec) 81 mg PO DAILY Changed furosemide 40 mg tablet 20 mg PO DAILY Qty: 14 0RF Discharge Orders: Discharge Order (Routine); Ordered 05/30/22 Ordered By: Clary Ibrahim Admission Data Admit Date/Time: 05/30/22 01:50 Attending Provider: Clary Ibrahim Admit Provider: Sedrick Zarate Primary Care Provider: Umang Das Other Providers: Umang Rapp Coding Level of Care Code D/C DAY MANAGEMENT >30 MINS Diagnoses TIA (transient ischemic attack) G45.9 Hyponatremia E87.1 CAD (coronary artery disease) I25.10 Mild cognitive disorder F09 Hypertension I10 Hyperlipidemia E78.5 Chronic rhinitis J31.0 Sensorineural hearing loss (SNHL) of left ear with restricted hearing of right ear H90.A22 GERD (gastroesophageal reflux disease) K21.9 Pulmonary nodules R91.8
--- NOTE | 2022-05-30 17:48 | Electrocardiogram Report ---
Test Reason : Blood Pressure : / mmHG Vent. Rate : 076 BPM Atrial Rate : 076 BPM P-R Int : 176 ms QRS Dur : 092 ms QT Int : 412 ms P-R-T Axes : 093 002 -15 degrees QTc Int : 463 ms Poor data quality, interpretation may be adversely affected Normal sinus rhythm Possible Inferior infarct , age undetermined Abnormal ECG No previous ECGs available Confirmed by Sav Gunter ([id number]) on 05/30/2022 5:47:56 PM Referred By: REFERRED SELF Confirmed By:Terell Gunter
[2022-05-30] MEDS ORDERED: CALCIUM 600MG + VIT D 400 IU TAB PO SCH (21:00)
== END 2022-05-30 18:00 | disposition home or self-care (01) ==
LOC: ED 21:11 → INTOOBSV 05-30 01:50 → SUATTDRO 05-30 01:50 → 2N 05-30 01:50
DX: Z79.02 Long term (current) use of antithrombotics/antiplatelets; Z88.2 Allergy status to sulfonamides; K21.9 Gastro-esophageal reflux disease without esophagitis; I25.10 Atherosclerotic heart disease of native coronary artery without angina pectoris; Z87.891 Personal history of nicotine dependence; G45.9 Transient cerebral ischemic attack, unspecified; Z79.899 Other long term (current) drug therapy; E78.5 Hyperlipidemia, unspecified; E87.1 Hypo-osmolality and hyponatremia; R77.8 Other specified abnormalities of plasma proteins; R29.90 Unspecified symptoms and signs involving the nervous system; I10 Essential (primary) hypertension